=== PATIENT | female | born 1945 | race Caucasian/White ===

== ENCOUNTER 2017-03-10 14:44 | Outpatient (RCR) | payer MEDICARE, OTHER ==
[2017-03-03 16:15] LABS: BASOPHILS % (AUTO) 0 % (0-10); EOSINOPHILS # (AUTO) 0.4 10^3/uL (0.0-0.3); EOSINOPHILS % (AUTO) 4 % (0-10); LYMPHOCYTES # (AUTO) 3.2 X 10^3 (1.0-4.0); LYMPHOCYTES % (AUTO) 37 % (12-44); MEAN CORPUSCULAR HEMOGLOBIN 30 PG (25-34); MEAN CORPUSCULAR HGB CONC 33 G/DL (32-36); MEAN CORPUSCULAR VOLUME 89 FL (80-99); MEAN PLATELET VOLUME 10.1 FL (7.4-10.4); MONOCYTES # (AUTO) 0.8 X 10^3 (0.0-1.0); MONOCYTES % (AUTO) 9 % (0-12); NEUTROPHILS # (AUTO) 4.3 X 10^3 (1.8-7.8); NEUTROPHILS % (AUTO) 50 % (42-75); PLATELET COUNT 298 10^3/uL (130-400); RED BLOOD COUNT 4.45 10^6/uL (4.35-5.85); RED CELL DISTRIBUTION WIDTH 13.5 % (10.0-14.5); WHITE BLOOD COUNT 8.8 10^3/uL (4.3-11.0)
[2017-03-03 16:34] LABS: ALANINE AMINOTRANSFERASE 26 U/L (0-55); ALBUMIN 4.3 GM/DL (3.2-4.5); ANION GAP 12 MMOL/L (5-14); ASPARTATE AMINO TRANSFERASE 20 U/L (5-34); BILIRUBIN,TOTAL 0.5 MG/DL (0.1-1.0); BLOOD UREA NITROGEN 19 MG/DL (7-18); BUN/CREATININE RATIO 24 (0-20); CALCIUM 9.5 MG/DL (8.5-10.1); CARBON DIOXIDE 30 MMOL/L (21-32); CHLORIDE 100 MMOL/L (98-107); CREATININE SERUM 0.79 MG/DL (0.60-1.30); GFR ESTIMATED > 60; GLUCOSE 146 MG/DL (70-105); POTASSIUM 3.7 MMOL/L (3.6-5.0); SODIUM 142 MMOL/L (135-145); TOTAL PROTEIN 6.4 GM/DL (6.4-8.2)
== END 2017-03-16 09:58 | disposition home or self-care (01) ==
LOC: PAR 14:44
PROVIDERS: ATTEND Internal Medicine Hematology & Oncology
DX: Z08 Encounter for follow-up examination after completed treatment for malignant neoplasm (principal); Z85.3 Personal history of malignant neoplasm of breast; Z90.11 Acquired absence of right breast and nipple; I10 Essential (primary) hypertension; E11.9 Type 2 diabetes mellitus without complications; Z79.899 Other long term (current) drug therapy
CPT/HCPCS: 36415; 80053; 85025; 86300; 99213

== ENCOUNTER 2017-04-15 05:39 | Outpatient (CLI) | payer MEDICARE, OTHER ==
[~2017-04-15] VITALS: Ht 154.9 cm; Wt 63.5 kg
[2017-04-15] MEDS ORDERED: METF500T4 PO (10:54)
[2017-04-15] MEDS ORDERED: POTA10CA43 PO (10:54)
[2017-04-15] MEDS ORDERED: ATEN25TA PO (10:54)
[2017-04-15] MEDS ORDERED: CLON0.2T PO (10:54)
[2017-04-15] MEDS ORDERED: BUME1TAB4 PO (10:54)
[2017-04-15] MEDS ORDERED: ATOR20TA66 PO (10:54)
== END 2017-04-15 11:00 ==
LOC: PREOP 05:39
PROVIDERS: ATTEND Surgery
DX: Z01.818 Encounter for other preprocedural examination (principal); Z12.11 Encounter for screening for malignant neoplasm of colon; R13.10 Dysphagia, unspecified

== ENCOUNTER 2017-04-19 08:59 | Day surgery (SDC) | payer MEDICARE, OTHER ==
[~2017-04-19] VITALS: Ht 154.9 cm; Wt 63.5 kg
[~2017-04-19 08:59] MED LIST: ATEN25TA PO; ATOR20TA66 PO; BUME1TAB4 PO; CLON0.2T PO; METF500T4 PO; POTA10CA43 PO
[2017-04-19] MEDS ORDERED: LACTATED RINGERS 1,000 ML IV ONE ×2 (09:05→11:30)
[2017-04-19] MEDS ORDERED: LACTATED RINGERS 1,000 ML IV STA (09:10)
[2017-04-19] MEDS ORDERED: HURRICAINE EXT TUBE (BENZOCAINE) XX PRN (09:15)
[2017-04-19 09:25] VITALS: BP 176/99
[2017-04-19] MEDS ORDERED: MIDAZOLAM 2 MG/2 ML (VERSED) VIAL ONE (09:32)
[2017-04-19] MEDS ORDERED: PROPOFOL INJECTION 50 ML IV ONE (09:32)
--- NOTE | 2017-04-19 09:45 | Progress Note-Pre Operative ---
Pre-Operative Progress Note H&P Reviewed The H&P was reviewed, patient examined and no changes noted. Date Seen by Provider: Apr 19, 2017 Time Seen by Provider: 09:45 Date H&P Reviewed: Apr 19, 2017 Time H&P Reviewed: 09:45 Pre-Operative Diagnosis: gerd, dysphagia, screening colonoscopy YOUNG CUTLER DO Apr 19, 2017 09:45
--- NOTE | 2017-04-19 10:36 | Progress Note-Post Operative ---
Post-Operative Progess Note Surgeon (s)/Chiller Tender (s) Surgeon YOUNG CUTLER DO Chiller Tender: na Pre-Operative Diagnosis gerd, dysphagia, screening colonoscopy Post-Operative Diagnosis duodenal diverticulum, gastric polyps, hiatal hernia, diverticulosis Procedure & Operative Findings Date of Procedure 04/19/17 Procedure Performed/Findings egd with biopsy antrum and hot bx polypectomy, colonoscopy Anesthesia Type per family reunification specialist Estimated Blood Loss Estimated blood loss (mL): none Specimens/Packing Specimens Removed antrum, gastric polyp YOUNG CUTLER DO Apr 19, 2017 10:36
[2017-04-19] MEDS ORDERED: OMEP20CA12 PO (10:38)
--- NOTE | 2017-04-19 10:39 | Discharge Inst-Simple/Standard ---
Discharge Inst-Standard Discharge Medications New, Converted or Re-Newed RX: RX on Chart Patient Instructions/Follow Up Plan of Care/Instructions/FU: 3 weeks Kelle Activity as Tolerated: Yes Discharge Diet: Regular Diet (small frequent meals) YOUNG CUTLER DO Apr 19, 2017 10:39
[2017-04-19 10:50] VITALS: BP_SYST 119; BP_SYST 138; BP_DIAS 62; BP_DIAS 72
[2017-04-19 11:20] VITALS: BP 138/72
[2017-04-19] MEDS ORDERED: HURRICAINE EXT TUBE (BENZOCAINE) XX ONE (11:30)
[2017-04-19 11:35] VITALS: BP 138/72
[2017-04-19] MEDS ORDERED: HURRICAINE EXT TUBE (BENZOCAINE) ONE (16:07)
--- NOTE | 2017-04-20 10:06 | PROCEDURE REPORT ---
PROCEDURE PHYSICIAN: YOUNG CUTLER DATE OF PROCEDURE: 04/19/2017 PREOPERATIVE DIAGNOSIS: 1. GERD. 2. Dysphagia. 3. Screening colonoscopy. POSTOPERATIVE DIAGNOSIS: 1. Duodenal diverticulum. 2. Gastric polyp. 3. Hiatal hernia. 4. Diverticulosis. PROCEDURE: EGD with biopsy of the antrum and hot biopsy polypectomy, colonoscopy. SURGEON: Kelle. ANESTHESIA: Per JIG WORKER. ESTIMATED BLOOD LOSS: None. COMPLICATIONS: None. INDICATIONS: The patient is a 72-year-old female who is due for EGD and colonoscopy. She has been having some dysphagia from time to time and she has a history of gastric polyps. She understands the risks and benefits of procedures and wished to proceed with procedure. Consent was signed on the chart. PROCEDURE: The patient was taken to the endoscopy suite, placed in left lateral recumbent position. A timeout was performed. The scope was inserted in the mouth, down the esophagus, stomach and into the duodenum without difficulty. There were no polyps, masses or ulcerations. Within the duodenum there was a duodenal diverticulum that was evident. The scope was then continued to be slowly retracted back into the stomach which was insufflated noting multiple gastric polyps, all benign appearing. Hot biopsy polypectomy was performed on for specimen. Biopsy of antrum was also obtained. The scope was retroflexed noting a hiatal hernia. The scope was returned its normal position slowly withdrawn noting no other pathology. The scope was slowly retracted until completely removed noting no other pathology. COLONOSCOPY: Digital rectal exam was performed. A small external hemorrhoid was present. The scope was inserted in the rectum and advanced all the way to the cecum. There was no evidence of palpable polyps, masses or ulcerations. The scope was inserted in the rectum and advanced all of the way to the cecum with minimal difficulty. Prep was adequate. The scope was then slowly retracted back. There were no polyps, masses or ulcerations within the cecum, ascending, transverse and descending colon. In the descending colon a small moderate amount of diverticulosis present. The scope continued into the sigmoid colon noting no other pathology. The scope was continued to be retracted back into the rectum where it was also retroflexed noting no other pathology. The scope was returned to its normal position and slowly withdrawn until completely removed. RECOMMENDATIONS: The patient will need a repeat colonoscopy in 10 years unless she has any problems prior to that, unless she has a family history which would then be 5 years. If she has any problems prior to that, she should be reevaluated at that time. The patient with gastric polyps and hiatal hernia, her symptoms may be due to reflux. We will start her on Prilosec 20 mg daily to see how she does. She will follow-up the biopsies in approximately 3 weeks to see pathology results and see what her symptoms are doing at that time. Job ID: [id number] Dictated Date: 04/19/2017 10:43:43 [employer] Date: 04/20/2017 09:52:26 / howard
== END 2017-04-19 11:35 | disposition home or self-care (01) ==
LOC: ENDO 08:59
PROVIDERS: ATTEND Surgery
DX: Z12.11 Encounter for screening for malignant neoplasm of colon (principal); K57.30 Diverticulosis of large intestine without perforation or abscess without bleeding; K29.50 Unspecified chronic gastritis without bleeding; K31.7 Polyp of stomach and duodenum; K44.9 Diaphragmatic hernia without obstruction or gangrene; K21.9 Gastro-esophageal reflux disease without esophagitis; E11.9 Type 2 diabetes mellitus without complications; I10 Essential (primary) hypertension; Z79.84 Long term (current) use of oral hypoglycemic drugs; Z79.899 Other long term (current) drug therapy
CPT/HCPCS: 43239; 43250; G0121; 82962

== ENCOUNTER → 2020-03-10 | Outpatient (CLI) | payer MEDICARE, OTHER ==
[~2020-03-10] MED LIST changes: -BUME1TAB4 PO; +BUME1TAB8 PO; +METF-397 PO; -METF500T4 PO; +OMEP20CA18 PO
[2020-03-10 11:01] LABS: BASOPHILS % (AUTO) 0 % (0-10); EOSINOPHILS # (AUTO) 0.2 10^3/uL (0.0-0.3); EOSINOPHILS % (AUTO) 3 % (0-10); HEMATOCRIT 36 % (35-52); HEMOGLOBIN 11.8 G/DL (11.5-16.0); LYMPHOCYTES # (AUTO) 2.3 X 10^3 (1.0-4.0); LYMPHOCYTES % (AUTO) 35 % (12-44); MEAN CORPUSCULAR HEMOGLOBIN 30 PG (25-34); MEAN CORPUSCULAR HGB CONC 33 G/DL (32-36); MEAN CORPUSCULAR VOLUME 89 FL (80-99); MEAN PLATELET VOLUME 9.3 FL (7.4-10.4); MONOCYTES # (AUTO) 0.6 X 10^3 (0.0-1.0); MONOCYTES % (AUTO) 8 % (0-12); NEUTROPHILS # (AUTO) 3.7 X 10^3 (1.8-7.8); NEUTROPHILS % (AUTO) 54 % (42-75); PLATELET COUNT 238 10^3/uL (130-400); RED CELL DISTRIBUTION WIDTH 13.7 % (10.0-14.5); WHITE BLOOD COUNT 6.8 10^3/uL (4.3-11.0)
[2020-03-10 11:22] LABS: ALANINE AMINOTRANSFERASE 16 U/L (0-55); ALKALINE PHOSPHATASE 85 U/L (40-136); BILIRUBIN,TOTAL 0.4 MG/DL (0.1-1.0); BUN/CREATININE RATIO 23; CALCIUM 8.4 MG/DL (8.5-10.1); CARBON DIOXIDE 24 MMOL/L (21-32); CHLORIDE 104 MMOL/L (98-107); CREATININE SERUM 0.71 MG/DL (0.60-1.30); GFR ESTIMATED > 60; GLUCOSE 164 MG/DL (70-105); POTASSIUM 3.5 MMOL/L (3.6-5.0); SODIUM 141 MMOL/L (135-145)
== END ==
LOC: ONC 10:47
PROVIDERS: ATTEND Internal Medicine Hematology & Oncology
DX: Z12.31 Encounter for screening mammogram for malignant neoplasm of breast (principal); I10 Essential (primary) hypertension; E11.9 Type 2 diabetes mellitus without complications; K21.9 Gastro-esophageal reflux disease without esophagitis; Z85.3 Personal history of malignant neoplasm of breast; Z92.21 Personal history of antineoplastic chemotherapy; Z90.11 Acquired absence of right breast and nipple
CPT/HCPCS: 80053; 85025; G0463; 99213